=== PATIENT | female | born 1935 | race Caucasian/White ===

== ENCOUNTER 2018-10-09 10:34 | Emergency (ER) | payer MEDICARE ==
[~2018-10-09] VITALS: Ht 162.6 cm; Wt 77.0 kg
[2018-10-09 10:40] VITALS: Ht 162.6 cm; Wt 77.0 kg
[2018-10-09] MEDS ORDERED: FLAGYL500 MG PO (10:43)
[2018-10-09] MEDS ORDERED: PROBIOTIC1 EAC1 PO (10:43)
[2018-10-09] MEDS ORDERED: COREG6.25 MG PO (10:43)
[2018-10-09] MEDS ORDERED: LEVOXYL50 MCG PO (10:44)
[2018-10-09] MEDS ORDERED: LOSARTAN POTASS25 MG PO (10:44)
[2018-10-09] MEDS ORDERED: ZYRTEC10 MG PO (10:44)
[2018-10-09] MEDS ORDERED: ANASTROZOLE1 MG PO (10:44)
[2018-10-09 11:23] LABS: BASOPHILS 0.2 % (0-2); EOSINOPHILS 3.7 % (0-7); IMMATURE GRANULOCYTES 0.4 % (0-5); LYMPHOCYTES 14.5 % (15-50); MCH 29.5 pg (26.0-34.0); MCHC 33.3 g/dL (31.0-37.0); MCV 88.5 fL (80.0-100.0); MEAN PLATELET VOLUME 8.6 fL (7.4-10.4); MONOCYTES 18.6 % (2-11); NEUTROPHILS 62.6 % (40-80); PLATELET COUNT 173 10x3/uL (130-400); RBC 4.07 10x6/uL (4.00-5.40); RDW 14.6 % (11.5-14.5); WBC 5.1 10x3/uL (4.8-10.8)
[2018-10-09 11:33] LABS: APTT 45.8 SECONDS (22.8-39.4); INR 1.35 (0.85-1.17); PROTIME 16.2 SECONDS (11.6-15.0)
[2018-10-09 11:35] LABS: ALBUMIN 3.3 g/dL (3.4-5.0); ALKALINE PHOSPHATASE 58 U/L (46-116); ALT (SGPT) 19 U/L (10-68); BILIRUBIN - TOTAL 0.66 mg/dL (0.2-1.3); CALC OSMOLALITY 276 mosm/kg (275-300); CALCIUM 8.8 mg/dL (8.5-10.1); CARBON DIOXIDE 24.5 mmol/L (21.0-32.0); CHLORIDE - SERUM 101 mmol/L (98-107); CREATININE - SERUM 1.2 mg/dL (0.6-1.3); GLUCOSE 94 mg/dL (74-106); POTASSIUM - SERUM 4.1 mmol/L (3.5-5.1); PROTEIN - SERUM 6.4 g/dL (6.4-8.2); SODIUM 137 mmol/L (136-145); UREA NITROGEN 20 mg/dL (7-18); eGFR NON AFRICAN AMERICAN 45 mL/min (90-120)
[2018-10-09 11:39] LABS: LIPASE 144 U/L (73-393); TROPONIN-I < 0.017 ng/mL (0.000-0.060)
[2018-10-09 12:40] VITALS: BP 170/85
== END 2018-10-09 12:42 | disposition home or self-care (01) ==
LOC: D.ER 10:34
PROVIDERS: Family Medicine
DX: K92.2 Gastrointestinal hemorrhage, unspecified (principal)

== ENCOUNTER 2018-11-05 09:08 | Day surgery (SDC) | payer MEDICARE, BC ==
[~2018-11-05] VITALS: Ht 162.6 cm; Wt 76.8 kg
[~2018-11-05 09:08] MED LIST: ANASTROZOLE1 MG PO; COREG6.25 MG PO; FLAGYL500 MG PO; LEVOXYL50 MCG PO; LOSARTAN POTASS25 MG PO; PROBIOTIC1 EAC1 PO; ZYRTEC10 MG PO
[2018-11-05 09:42] LABS: EOSINOPHILS 4.4 % (0-7); HEMATOCRIT 40.3 % (36.0-48.0); HEMOGLOBIN 13.5 g/dL (12-16); IMMATURE GRANULOCYTES 0.2 % (0-5); LYMPHOCYTES 18.9 % (15-50); MCH 30.4 pg (26.0-34.0); MCHC 33.5 g/dL (31.0-37.0); MCV 90.8 fL (80.0-100.0); MEAN PLATELET VOLUME 8.9 fL (7.4-10.4); MONOCYTES 9.6 % (2-11); NEUTROPHILS 65.9 % (40-80); PLATELET COUNT 176 10x3/uL (130-400); RBC 4.44 10x6/uL (4.00-5.40); RDW 15.6 % (11.5-14.5); WBC 4.8 10x3/uL (4.8-10.8)
[2018-11-05 09:57] LABS: ANION GAP 12.6 mmol/L (8-16); CALCIUM 8.8 mg/dL (8.5-10.1); CARBON DIOXIDE 27.5 mmol/L (21.0-32.0); CREATININE - SERUM 1.3 mg/dL (0.6-1.3); POTASSIUM - SERUM 4.1 mmol/L (3.5-5.1)
[2018-11-05] MEDS ORDERED: ELIQUIS2.5 MG PO (10:30)
[2018-11-05] MEDS ORDERED: PROLIA INJ 660 MG/M1 (10:31)
[2018-11-05 10:47] VITALS: BP 151/67; Ht 162.6 cm; Wt 76.8 kg
--- NOTE | 2018-11-05 13:23 | NUR ---
DC INSTRUCTIONS GIVEN TO PT/FAMILY. STATE UNDERSTANDING. DC'D IV CATH FULLY INTACT. PT LEFT UNIT VIA WC AT 1250
--- NOTE | 2018-11-10 10:43 | OP ---
PATIENT NAME: LENARD RUSH MEDICAL RECORD: [id number] :35 LOCATION:[facility] ADMISSION DATE: SURGEON: JEFF MCKENNA DO DATE OF OPERATION: 11/05/2018 PROCEDURE: Colonoscopy with polypectomy and biopsies. INDICATIONS FOR PROCEDURE: Change in bowel habits, diarrhea, hematochezia, history of breast cancer, stomach cramps. SCOPE: Olympus video pediatric colonoscope. MEDICATIONS: Propofol 240 mg IV per anesthesia. WITHDRAWAL TIME: 16 minutes. ESTIMATED BLOOD LOSS: Minimal. COMPLICATIONS: None. FINDINGS: Informed consent was given. The patient was made comfortable with the above medication. After reaching an adequate level of sedation by slow IV push, the patient was placed on her left side. A digital rectal examination was performed and was normal. The endoscope was advanced under direct visualization through the rectum to the cecum, confirmed by the presence of the appendiceal orifice and ileocecal valve. The endoscope was slowly withdrawn and mucosa was carefully examined. Prep quality was good. There was a single polyp located in the ascending colon, which was benign appearing and sessile. It measured approximately 3 mm in diameter. It was removed using hot forceps. Retroflexion was performed in the rectum with visualization of grade I internal hemorrhoids. There was also some mucosa over the hemorrhoid bed located at approximately 9 o'clock that was slightly friable. The mucosa did not appear malignant, but was slightly oozing upon retroflexion, which could have been iatrogenic trauma. No biopsies were taken on today's examination due to the location of this tissue in relation to hemorrhoids. The endoscope was withdrawn from the patient. The patient tolerated the procedure well and there were no complications. IMPRESSION: 1. Ascending colon polyp removed using a hot forceps. 2. Friable rectal mucosa at the 9 o'clock position overlying grade I internal hemorrhoids. PLAN AND RECOMMENDATIONS: 1. Discharge home when recovery parameters are met. 2. Follow up biopsy specimen results. 3. High fiber diet. 4. Continue current medications. 5. If biopsies and stool studies are normal, it would be okay to use Imodium as needed to slow the bowels down or trial of dicyclomine could be given. 6. If bleeding continues, consider anoscopic exam with general surgery regarding hemorrhoids and friable rectal mucosa. 7. No further recall colonoscopies are necessary based on the patient's age, unless symptoms warrant evaluation. TRANSINT:[id number] Voice Confirmation ID: [id number] DOCUMENT ID: [id number] OPERATIVE REPORT [id number] LENARD RUSH,JEFF Vigil DO at 1043 CC: [id number] DICTATION DATE: 11/05/18 1145 AWNING ERECTOR: 11/05/18 1504 [facility] 11/05/18 [id number] [place] [address]
== END 2018-11-05 12:50 | disposition home or self-care (01) ==
LOC: D.OPS 09:08
PROVIDERS: Anesthesiology
DX: K63.5 Polyp of colon (principal); K64.0 First degree hemorrhoids; Z85.3 Personal history of malignant neoplasm of breast; Z01.812 Encounter for preprocedural laboratory examination